=== PATIENT | female | born 1995 | race African-American/Black ===

== ENCOUNTER 2021-04-22 21:24 | Emergency (ER) | payer OTHER ==
[~2021-04-22] VITALS: Ht 167.6 cm; Wt 65.0 kg
[2021-04-22] MEDS ORDERED: KETOROLAC 30MG/ML VIAL IM ONE (23:15)
[2021-04-22] MEDS ORDERED: TRAMADOL 50MG TABLET PO ONE (23:15)
[2021-04-23 01:47] VITALS: BP 125/88
[2021-04-23 02:31] LABS: CLARITY URINE CLOUDY (CLEAR); COLOR URINE YELLOW (YELLOW); KETONES URINE TRACE (NEGATIVE); LEUKOCYTE ESTERASE URINE 1+ (NEGATIVE); NITRITE URINE NEGATIVE (NEGATIVE); OCCULT BLOOD URINE NEGATIVE (NEGATIVE); PROTEIN URINE NEGATIVE (NEGATIVE); UROBILINOGEN URINE 0.2 E.U./dL (0.2-1.0)
[2021-04-23] MEDS ORDERED: CEFTRIAXONE SODIUM 500 MG/VIAL IM NR (03:15)
[2021-04-23] MEDS ORDERED: LIDOCAINE HCL 1% 10 MG/ML 10ML VIAL INJ NR (03:15)
[2021-04-23] MEDS ORDERED: AZITHROMYCIN 500 MG TABLET PO NR (03:15)
[2021-04-23] MEDS ORDERED: IBUP-2029 MT (10:06)
[2021-04-23] MEDS ORDERED: ACET650T37 MT (10:40)
== END 2021-04-23 03:45 | disposition home or self-care (01) ==
LOC: ER 21:24
DX: S39.012A Strain of muscle, fascia and tendon of lower back, initial encounter (principal); R35.0 Frequency of micturition; X58.XXXA Exposure to other specified factors, initial encounter; Y93.89 Activity, other specified; Y92.89 Other specified places as the place of occurrence of the external cause; Y99.8 Other external cause status
CPT/HCPCS: 81003; 81025; 96372; 99284; J0696; J1885; J3490

== ENCOUNTER 2021-04-23 04:16 | Emergency (ER) | payer OTHER ==
[~2021-04-23] VITALS: Ht 157.5 cm; Wt 64.0 kg
[2021-04-23 05:21] LABS: BASOPHILS % 0.5 % (0.0-2.0); EOSINOPHILS % 1.6 % (0.0-5.0); HEMOGLOBIN. 13.3 g/dL (12.0-16.0); LYMPHOCYTES % 41.5 % (20.0-50.0); MEAN CORPUSCULAR HEMOGLOBIN 29.3 pg (28.0-32.0); MEAN CORPUSCULAR VOLUME 86.1 fL (81.0-99.0); MEAN PLATELET VOLUME 8.1 fl (7.4-10.4); NEUTROPHILS % 42.4 % (40.0-76.0); PLATELET 245 x1000/uL (130-400); RED BLOOD CELL COUNT 4.53 mill/uL (4.2-5.4)
[2021-04-23 05:23] LABS: CLARITY URINE CLEAR (CLEAR); COLOR URINE YELLOW (YELLOW); KETONES URINE NEGATIVE (NEGATIVE); LEUKOCYTE ESTERASE URINE TRACE (NEGATIVE); NITRITE URINE NEGATIVE (NEGATIVE); OCCULT BLOOD URINE NEGATIVE (NEGATIVE); PH URINE 6.5 (4.5-8.0); PROTEIN URINE 1+ (NEGATIVE); SPECIFIC GRAVITY URINE 1.016 (1.005-1.030); UROBILINOGEN URINE 0.2 E.U./dL (0.2-1.0)
[2021-04-23 05:29] LABS: CHLORIDE 107 mEq/L (98-107)
[2021-04-23 05:36] LABS: ETHANOL BLOOD < 10 mg/dL
[2021-04-23 05:39] LABS: CREATINE KINASE 679 IU/L (26-192)
[2021-04-23 05:50] LABS: *AMPHETAMINES SCREEN URINE NEGATIVE (NEGATIVE); *BENZODIAZEPINES SCREEN URINE NEGATIVE (NEGATIVE)
[2021-04-23 05:51] LABS: *COCAINE SCREEN URINE NEGATIVE (NEGATIVE); CANNABINOID URINE SCREEN NEGATIVE (NEGATIVE); METHADONE URINE SCREEN NEGATIVE (NEGATIVE); OPIATES URINE SCREEN NEGATIVE (NEGATIVE); PHENCYCLIDINE URINE SCREEN NEGATIVE (NEGATIVE)
[2021-04-23] MEDS ORDERED: ACETAMINOPHEN 325MG TABLET PO ONE (06:00)
[2021-04-23] MEDS ORDERED: IBUPROFEN 600MG TABLET PO ONE (06:00)
[2021-04-23 09:17] VITALS: BP 190/89
[2021-04-23] MEDS ORDERED: IBUP-2029 MT (10:06)
[2021-04-23] MEDS ORDERED: ACETAMINOPHEN 325MG TABLET PO NR (10:15)
[2021-04-23] MEDS ORDERED: ACET650T37 MT (10:40)
[2021-04-24 22:04] LABS: *BARBITURATES SCREEN URINE NEGATIVE (NEGATIVE)
== END 2021-04-23 11:00 | disposition home or self-care (01) ==
LOC: ER 04:16
DX: M54.9 Dorsalgia, unspecified (principal); F31.9 Bipolar disorder, unspecified; F20.9 Schizophrenia, unspecified; Z98.890 Other specified postprocedural states
CPT/HCPCS: 36415; 80053; 80305; 80307; 80320; 80329; 81003; 81025; 82140; 82550; 82962; 84443; 85025; 99284; G0480

== ENCOUNTER 2021-04-23 21:47 | Emergency (ER) | payer OTHER ==
[~2021-04-23] VITALS: Ht 167.6 cm; Wt 62.0 kg
[~2021-04-23 21:47] MED LIST: ACET650T37 MT; IBUP-2029 MT
[2021-04-23 23:08] LABS: BASOPHILS % 0.4 % (0.0-2.0); EOSINOPHILS % 0.8 % (0.0-5.0); HEMATOCRIT. 38.9 % (36.0-48.0); HEMOGLOBIN. 13.5 g/dL (12.0-16.0); LYMPHOCYTES % 37.1 % (20.0-50.0); MEAN CORPUSCULAR HEMOGLOBIN 29.8 pg (28.0-32.0); MEAN CORPUSCULAR VOLUME 86.1 fL (81.0-99.0); MEAN PLATELET VOLUME 8.5 fl (7.4-10.4); MONOCYTES % 9.7 % (2.0-8.0); PLATELET 254 x1000/uL (130-400); RED BLOOD CELL COUNT 4.52 mill/uL (4.2-5.4); RED CELL DISTRIBUTION WIDTH 13.5 % (11.6-14.6)
[2021-04-23 23:19] LABS: CHLORIDE 107 mEq/L (98-107)
[2021-04-23 23:24] LABS: ETHANOL BLOOD < 10 mg/dL
[2021-04-23 23:27] LABS: CREATINE KINASE 558 IU/L (26-192)
[2021-04-23 23:32] LABS: CLARITY URINE CLEAR (CLEAR); COLOR URINE YELLOW (YELLOW); KETONES URINE TRACE (NEGATIVE); LEUKOCYTE ESTERASE URINE NEGATIVE (NEGATIVE); NITRITE URINE NEGATIVE (NEGATIVE); OCCULT BLOOD URINE NEGATIVE (NEGATIVE); PH URINE 5.5 (4.5-8.0); PROTEIN URINE 2+ (NEGATIVE); SPECIFIC GRAVITY URINE 1.015 (1.005-1.030); UROBILINOGEN URINE 0.2 E.U./dL (0.2-1.0)
[2021-04-23 23:46] LABS: *AMPHETAMINES SCREEN URINE NEGATIVE (NEGATIVE); *BENZODIAZEPINES SCREEN URINE NEGATIVE (NEGATIVE); *COCAINE SCREEN URINE NEGATIVE (NEGATIVE); CANNABINOID URINE SCREEN NEGATIVE (NEGATIVE); METHADONE URINE SCREEN NEGATIVE (NEGATIVE); OPIATES URINE SCREEN NEGATIVE (NEGATIVE); PHENCYCLIDINE URINE SCREEN NEGATIVE (NEGATIVE)
[2021-04-24 00:09] LABS: HCG SCREEN NEGATIVE
[2021-04-24 00:46] LABS: CHLORIDE 106 mEq/L (98-107)
[2021-04-24 10:16] LABS: CHLORIDE 105 mEq/L (98-107)
[2021-04-24 10:21] LABS: ETHANOL BLOOD < 10 mg/dL
[2021-04-24 10:22] LABS: BASOPHILS % 0.2 % (0.0-2.0); EOSINOPHILS % 0.4 % (0.0-5.0); HEMATOCRIT. 41.1 % (36.0-48.0); LYMPHOCYTES % 25.7 % (20.0-50.0); MEAN CORPUSCULAR HEMOGLOBIN 29.6 pg (28.0-32.0); MEAN CORPUSCULAR VOLUME 87.2 fL (81.0-99.0); MEAN PLATELET VOLUME 8.3 fl (7.4-10.4); NEUTROPHILS % 66.7 % (40.0-76.0); PLATELET 279 x1000/uL (130-400); RED BLOOD CELL COUNT 4.71 mill/uL (4.2-5.4); RED CELL DISTRIBUTION WIDTH 13.3 % (11.6-14.6)
[2021-04-24] MEDS: CITALOPRAM HYDROBROMIDE 10MG TABLET PO SCH (11:32)
[2021-04-24] MEDS ORDERED: IBUPROFEN 400MG TABLET PO ONE (15:45)
[2021-04-24 16:18] LABS: CREATINE KINASE 407 IU/L (26-192)
[2021-04-24] MEDS: RISPERIDONE 0.5MG TABLET PO SCH (18:27)
[2021-04-24 22:44] LABS: *BARBITURATES SCREEN URINE NEGATIVE (NEGATIVE)
[2021-04-25] MEDS: CITALOPRAM HYDROBROMIDE 10MG TABLET PO SCH (09:48)
[2021-04-25] MEDS: RISPERIDONE 0.5MG TABLET PO SCH (09:48)
[2021-04-25 14:30] VITALS: BP 115/82
== END 2021-04-25 15:36 ==
LOC: ER 21:47
DX: T39.1X1A Poisoning by 4-Aminophenol derivatives, accidental (unintentional), initial encounter (principal); R45.851 Suicidal ideations; F99 Mental disorder, not otherwise specified; F41.9 Anxiety disorder, unspecified; F31.9 Bipolar disorder, unspecified; F20.9 Schizophrenia, unspecified; Z98.890 Other specified postprocedural states; X58.XXXA Exposure to other specified factors, initial encounter
CPT/HCPCS: 36415; 80053; 80305; 80307; 80320; 80329; 81003; 81025; 82550; 84703; 85025; 99291; G0480